=== PATIENT | female | born 1995 | race American Indian/Alaskan Native ===

== ENCOUNTER 2017-01-23 14:49 | Outpatient (CLI) | payer OTHER ==
[2017-01-23] MEDS ORDERED: LACTATED RINGERS 500 ML IV ONE (15:33)
[2017-01-23 15:45] LABS: Urine Drugs of Abuse Note Disclamer
[2017-01-23 16:10] LABS: Bilirubin,Urine NEG (Negative); Blood,Urine NEG (Negative); Ketones,Urine NEG (Negative); Leukocyte Esterase,Urine NEG (Negative); Mucus,Urine 1+ /HPF; Nitrite,Urine NEG (Negative); Protein,Urine <15 mg/dL mg/dL (Negative); Urobilinogen,Urine < 2.0 mg/dL (<2.0)
[2017-01-23 16:24] VITALS: BP 110/60
== END 2017-01-23 16:31 | disposition home or self-care (01) ==
LOC: TRG 14:49
PROVIDERS: ATTEND Obstetrics & Gynecology
DX: Z34.92 Encounter for supervision of normal pregnancy, unspecified, second trimester (principal); Z3A.25 25 weeks gestation of pregnancy
CPT/HCPCS: 36415; 59025; 80307; 81001; 82731